=== PATIENT | male | born 1970 | race Caucasian/White ===

== ENCOUNTER 2019-01-09 08:35 | Emergency (ER) | payer OTHER ==
[~2019-01-09] VITALS: Ht 170.1 cm; Wt 122.5 kg
[2019-01-09 08:35] VITALS: BP 147/85
[~2019-01-09 08:35] MED LIST: BLOOD PRESSURE; BP PILL; CEPHALEXIN500 M1 PO; CLONAZEPAM0.5 M2 PO; CYCLOBENZAPRINE10 MG PO; FLEXERIL10 MG PO; HYDROCODONE BIT1 T11 PO; MOTRIN800 MG PO; Motrin,Rufen800 MG PO; NAPROSYN500 MG PO; NORCO 5-325 TA1 EACH PO; PREDNISONE10 MG PO; RISPERIDONE1 MG PO; SERTRALINE HYDR50 MG PO; TOBRADEX 0.1%-0.5 ML OPH; ULTRAM50 MG PO; VICODIN 500 MG-1 TAB PO; [UNRECOGNIZED DRUG - REMARK]
[2019-01-09] MEDS ORDERED: Motrin,Rufen800 MG PO (08:55)
[2019-01-09] MEDS ORDERED: KEFLEX500 M1 PO (08:55)
[2019-01-09] MEDS ORDERED: CLINDAMYCIN HC300 MG PO (08:55)
[2019-01-10] MEDS ORDERED: LISINOPRIL20 MG PO (15:14)
[2019-01-10] MEDS ORDERED: HYDR25T PO (15:14)
== END 2019-01-09 09:25 | disposition home or self-care (01) ==
LOC: ED 08:35
DX: M70.22 Olecranon bursitis, left elbow (principal); R05 Cough; R06.00 Dyspnea, unspecified; R09.3 Abnormal sputum; I10 Essential (primary) hypertension; K21.9 Gastro-esophageal reflux disease without esophagitis; F17.200 Nicotine dependence, unspecified, uncomplicated; Z79.899 Other long term (current) drug therapy; Y93.89 Activity, other specified

== ENCOUNTER 2019-01-10 09:49 | Inpatient (IN) | payer OTHER ==
[~2019-01-10] VITALS: Ht 170.1 cm; Wt 119.5 kg
[~2019-01-10 09:49] MED LIST changes: +CLINDAMYCIN HC300 MG PO; +KEFLEX500 M1 PO
[2019-01-10 09:50] VITALS: BP 148/76
[2019-01-10 10:58] LABS: HEMATOCRIT 50.6 % (42.0-52.0); HEMOGLOBIN 16.5 g/dl (14.0-18.0); MEAN CELL VOLUME 90.5 fl (80.0-94.0); MEAN CORPUSCULAR HGB 29.5 pg (27.0-31.0); MEAN CORPUSCULAR HGB CONC 32.6 g/dl (33.0-37.0); MEAN PLATELET VOLUME 10.2 fl (9.6-12.3); PLATELET COUNT AUTOMATED 290 10*3/uL (130-400); RED BLOOD COUNT 5.59 10*6/uL (4.50-5.90); RED CELL DISTRI WIDTH 13.9 % (0-14.5); WHITE BLOOD COUNT 17.6 10*3/uL (4.8-10.8)
--- NOTE | 2019-01-10 11:12 | NUR ---
PT STATES THAT HIS ITCHING IS FEELING BETTER
[2019-01-10 11:17] LABS: PLATELET SUFFICIENCY NORMAL (NORMAL); TOTAL CELLS COUNTED 100 #CELLS
[2019-01-10 11:24] LABS: ALBUMIN 3.5 gm/dl (3.1-4.5); ALKALINE PHOSPHATASE 85 U/L (45-117); BUN 17 mg/dl (7-24); CHLORIDE 106 mmol/L (98-107); CREATININE 0.92 mg/dL (0.70-1.30); POTASSIUM 3.6 mmol/L (3.5-5.1); SGOT/AST 13 IU/L (3-35); SGPT/ALT 34 U/L (12-78); SODIUM 138 mmol/L (136-145); TOTAL PROTEIN 7.9 gm/dL (6.4-8.2)
[2019-01-10 13:46] VITALS: BP 130/89; BP 1630/89
[2019-01-10] MEDS ORDERED: HYDR25T PO (15:14)
[2019-01-10] MEDS ORDERED: LISINOPRIL20 MG PO (15:14)
--- NOTE | 2019-01-10 15:22 | NUR ---
[facility] 48, admitted to , under the services of GANGA Cowan DO with a diagnosis of ALLERGIC REACTION. Chief complaint is ITCHING/PAIN. Patient arrived via bed from ER. Monitor applied. Initial assessment completed. Vital signs taken and recorded. GANGA COWAN DO notified of admission to the unit. Orders received. See assessment for past medical history, medications and allergies. Patient and/or family oriented to unit. [facility]. Clothing/patient valuable form completed. CHERELLE DENNIS
--- NOTE | 2019-01-10 15:30 | NUR ---
MRAIE GIVBEN FOR C/O LT ELBOW PAIN, RATES 8/10 ON PAIN SCALE. BENADRYL GIVEN FOR C/O ITCHING. WILL MONITOR.
[2019-01-10 16:00] VITALS: BP 148/80
--- NOTE | 2019-01-10 16:28 | NUR ---
NORCO AND BENADRYL EFFECTIVE PER PT.
[2019-01-10 20:00] VITALS: BP 160/91
--- NOTE | 2019-01-10 22:07 | NUR ---
PATIENT REQUESTING MEDICATION FOR ITCHING. BENADRYL ADMINISTERED PRESCRIBED. WILL MONITOR FOR EFFECTIVENESS.
--- NOTE | 2019-01-10 23:07 | NUR ---
PATIENT STATES THAT BENADRYL WAS EFFECTIVE FOR ITCHING. WILL MONITOR.
[2019-01-11] VITALS: BP 141/82
--- NOTE | 2019-01-11 04:27 | NUR ---
24 HR chart check completed.
--- NOTE | 2019-01-11 04:44 | NUR ---
PATIENT RESTING IN BED WITH EYES CLOSED AT THIS TIME.RESPIRATIONS EASY AND UNLABORED.CALL LIGHT WITHIN REACH. WILL MONITOR.
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
--- NOTE | 2019-01-11 05:50 | NUR ---
DR HERNANDEZ IN TO SEE PATIENT. ORDER TO TRANSFER TO ICU RECEIVED. PATIENT REFUSES TO BE TRANSFERED TO THE ICU AND WANTS TO LEAVE AMA.
--- NOTE | 2019-01-11 05:55 | NUR ---
THIS NURSE AND NURSING DRIER AND GRINDER TENDER IN ROOM TO TRY AND ENCOURAGE PATIENT TO STAY. PATIENT REFUSING. THIS NURSE AND DRIER AND GRINDER TENDER EXPLAINED TO PATIENT HOW SERIOUS HIS CONDITION IS AND IT IS NOT IN HIS BEST INTEREST TO LEAVE. PATIENT CONTINUES TO SCREAM AND CUSS AT STAFF. DEMANDING HIS MONITOR BE TAKEN OFF AND IV REMOVED. BOTH REMOVED AT THIS TIME. [place] PAPERWORK SIGNED.
--- NOTE | 2019-01-11 05:55 | NUR ---
NURSING ORIENTAL RUG STRETCHER MAY DUMONT TO SPEAK WITH PATIENT. PATIENT REFUSES TO TAKE IV PEPCID AT THIS TIME AND WANTS TO LEAVE AMA.
--- NOTE | 2019-01-11 06:01 | NUR ---
PATIENT IS FURIOUS THAT WE WOULD CAUSE THIS REACTION ON HIM. PATIENT EDUCATED ON THE LIFETHREATENING COMPLICATIONS RELATED TO AN ALLERGIC REACTION. PATIENT STATES THAT HE DOES NOT CARE AND THAT HE IS GOING TO A DIFFERENT HOSPITAL. PATIENT EDUCATED ON THE SIDE EFFECTS OF IV BENEDRYL. PATIENT IV REMOVED AND PATIENT SINGED AMA PAPER. ODD JOB LABORER MAY AND DR HERNANDEZ AWARE.
--- NOTE | 2019-01-11 06:04 | NUR ---
Patient signed out AMA. Patient encouraged to stay and advised of possible consequences of premature discharge. Physician DR HERNANDEZ and mold yard supervisor MAY notified. Patient instructed what to do regarding care post-departure from the hospital; emergency phone numbers provided. Patent was accompanied by SELF. ALANIS MUNROE
== END 2019-01-11 06:04 | disposition left against medical advice (07) | DRG 872 ==
LOC: ED 09:49 → EDHOLD 13:27 → 5E 14:33
PROVIDERS: Emergency Medicine; ADMIT Internal Medicine
DX: A41.9 Sepsis, unspecified organism (principal); L03.114 Cellulitis of left upper limb; L50.0 Allergic urticaria; I10 Essential (primary) hypertension; F12.90 Cannabis use, unspecified, uncomplicated; F32.9 Major depressive disorder, single episode, unspecified; R79.82 Elevated C-reactive protein (CRP); Z53.29 Procedure and treatment not carried out because of patient's decision for other reasons; E83.41 Hypermagnesemia; F17.210 Nicotine dependence, cigarettes, uncomplicated; Z71.6 Tobacco abuse counseling; Z95.0 Presence of cardiac pacemaker; Z82.49 Family history of ischemic heart disease and other diseases of the circulatory system; Z83.3 Family history of diabetes mellitus; Z80.42 Family history of malignant neoplasm of prostate; Z79.899 Other long term (current) drug therapy